=== PATIENT | female | born 1990 | race African-American/Black ===

== ENCOUNTER 2018-05-15 10:40 | Emergency (ER) | payer SELFPAY ==
[~2018-05-15] VITALS: Ht 170.2 cm; Wt 95.3 kg
[2018-05-15] MEDS ORDERED: ACETAMINOPHEN 325 MG TAB PO ONE (11:00)
[2018-05-15 11:40] VITALS: BP 122/73
--- NOTE | 2018-05-15 11:43 | Diagnostic Imaging Report ---
EXAMINATION: Head CT HISTORY: Dizziness, double vision, headache after fall the night before, hit the back of the head. COMPARISON: None. TECHNIQUE: Multidetector axial images were obtained without contrast from the foramen magnum to the vertex . The images were reconstructed using brain and bone algorithms. Thin section brain images were reformatted into coronal and sagittal planes. Intravenous contrast: None. Image quality: Motion/streaking artifact limits the evaluation of the skull base and posterior cranial fossa. Dose modulation, iterative reconstruction, and/or weight based adjustment of the mA/kV was utilized to reduce the radiation dose to as low as reasonably achievable. FINDINGS: Parenchyma: 1. No abnormal densities. 2. No mass or hemorrhage. No CT evidence of acute territorial vascular insult. Extra-axial spaces:No abnormal density. No extra-axial fluid collections Brain volume: Normal for age. Ventricles: No hydrocephalus or displacement. Arteries: No density suggestive of thrombus. Dural sinuses: No abnormal density. Extra-axial spaces: No abnormal density. Foramen magnum: No mass, Chiari malformation, or basilar invagination. Sella: No obvious mass. Paranasal/mastoid sinuses: Imaged portions unremarkable. Skull/Scalp: No lytic or blastic lesions. No fractures. IMPRESSION: No intracranial abnormalities, particularly no posttraumatic hemorrhage. Signed by: Dr. Pamela Hawkins M.D. on 05/15/2018 11:39 AM
== END 2018-05-15 11:46 | disposition home or self-care (01) ==
LOC: FSED 10:40
DX: S00.83XA Contusion of other part of head, initial encounter (principal); R51 Headache; W18.2XXA Fall in (into) shower or empty bathtub, initial encounter; W22.09XA Striking against other stationary object, initial encounter; Y93.E1 Activity, personal bathing and showering; Y92.002 Bathroom of unspecified non-institutional (private) residence as the place of occurrence of the external cause
CPT/HCPCS: 70450; 99284